=== PATIENT | female | born 1955 | race Caucasian/White ===

== ENCOUNTER 2016-06-18 09:45 | Outpatient (CLI) | payer MEDICAID | END 2016-06-18 09:46 | disposition home or self-care (01) | DX: E03.9 Hypothyroidism, unspecified (principal); Z13.6 Encounter for screening for cardiovascular disorders ==

== ENCOUNTER 2016-07-10 09:00 | Outpatient (CLI) | payer MEDICAID | END 2016-07-10 09:01 | disposition home or self-care (01) | DX: Z12.11 Encounter for screening for malignant neoplasm of colon (principal) ==

== ENCOUNTER 2016-07-24 14:52 | Outpatient (CLI) | payer MEDICAID | END 2016-07-24 14:53 | disposition home or self-care (01) | DX: Z12.31 Encounter for screening mammogram for malignant neoplasm of breast (principal) ==

== ENCOUNTER 2017-12-03 15:30 | Outpatient (CLI) | payer MEDICAID | END 2017-12-03 15:31 | disposition home or self-care (01) | LOC: LAB.F 15:30 | PROVIDERS: ATTEND Family Medicine | DX: E03.9 Hypothyroidism, unspecified (principal) | CPT/HCPCS: 36415; 84443 ==

== ENCOUNTER 2018-12-24 | Outpatient (CLI) | payer MEDICAID | END 2018-12-24 08:17 | disposition home or self-care (01) ==

== ENCOUNTER 2019-02-15 15:33 | Outpatient (CLI) | payer MEDICAID | END 2019-02-15 15:34 | disposition home or self-care (01) | LOC: LAB.S 15:33 | PROVIDERS: ATTEND Registered Nurse | DX: E03.9 Hypothyroidism, unspecified (principal) | CPT/HCPCS: 36415; 84443 ==

== ENCOUNTER 2020-06-29 10:02 | Outpatient (CLI) | payer MEDICARE ==
[2020-06-29 15:53] LABS: BASOPHILS # (AUTO) 0.1 10^3/uL (0.0-0.1); BASOPHILS % (AUTO) 0.7 %; EOSINOPHILS # (AUTO) 0.3 10^3/uL (0.0-0.7); EOSINOPHILS % (AUTO) 3.5 %; LYMPHOCYTES # (AUTO) 2.4 10^3/uL (1.5-3.5); LYMPHOCYTES % (AUTO) 27.8 %; MEAN CORPUSCULAR HEMOGLOBIN 32.3 pg (27.0-31.0); MEAN CORPUSCULAR HGB CONC 33.8 g/dL (32.0-36.0); MEAN CORPUSCULAR VOLUME 95.5 fL (81.0-99.0); MEAN PLATELET VOLUME 10.3 fL (7.9-10.8); MONOCYTES # (AUTO) 0.5 10^3/uL (0.0-1.0); NEUTROPHILS # (AUTO) 5.3 10^3/uL (1.5-6.6); NEUTROPHILS % (AUTO) 61.7 %; PLT - PLATELET COUNT 232 10^3/uL (130-450); RED BLOOD COUNT 4.65 10^6/uL (4.20-5.40); RED CELL DISTRIBUTION WIDTH 13.1 % (12.0-15.0); WHITE BLOOD COUNT 8.6 x10^3/uL (4.8-10.8)
[2020-06-29 16:20] LABS: ALBUMIN 4.2 g/dL (3.2-5.5); ALBUMIN/GLOBULIN RATIO 1.5 (1.0-2.2); ALKALINE PHOSPHATASE 54 IU/L (42-121); ALT ALANINE AMINOTRANSFERASE 83 IU/L (10-60); AST ASPARTATE AMINOTRANSFERASE 46 IU/L (10-42); BILIRUBIN,TOTAL 0.9 mg/dL (0.2-1.0); BUN - BLOOD UREA NITROGEN 23 mg/dL (6-20); CALCIUM 9.3 mg/dL (8.5-10.3); CARBON DIOXIDE - CO2 25 mmol/L (21-32); CHLORIDE 102 mmol/L (101-111); CHOLESTEROL 214 mg/dL; CREATININE 0.8 mg/dL (0.4-1.0); GLUCOSE 101 mg/dL (70-100); HDL CHOLESTEROL 53 mg/dL; LDL CHOLESTEROL,CALCULATED 122 mg/dL; LDL/HDL RATIO 2.3 (<4.4); VLDL CHOLESTEROL 39 mg/dL
== END 2020-06-29 10:03 | disposition home or self-care (01) ==
LOC: LAB.S 10:02
PROVIDERS: ATTEND Registered Nurse
DX: E78.1 Pure hyperglyceridemia (principal); E03.9 Hypothyroidism, unspecified
CPT/HCPCS: 36415; 80053; 80061; 83721; 84443; 85025

== ENCOUNTER 2021-08-07 14:10 | Outpatient (CLI) | payer MEDICARE ==
--- NOTE | 2021-08-08 10:40 | Mammography Report ---
BILATERAL DIGITAL SCREENING MAMMOGRAM 3D/2D: 08/07/2021 CLINICAL: Routine screening. Comparison is made to exams dated: 07/24/2016 mammogram and 05/10/2014 mammogram - [facility]. There are scattered fibroglandular elements in both breasts. No significant masses, calcifications, or other findings are seen in either breast. There has been no significant interval change. IMPRESSION: NEGATIVE There is no mammographic evidence of malignancy. A 1 year screening mammogram is recommended. This exam was interpreted at Station ID: [id number]. NOTE: For mammograms, a report in lay terms will be sent to the patient. Approximately 15% of breast malignancies will not be visualized mammographically. In the management of a palpable breast mass, a negative mammogram must not discourage biopsy of a clinically suspicious lesion. Electronically Signed By: Nkechi lopez/penrad:08/07/2021 17:34:54 ACR BI-RADS Category 1: Negative 3341F PARENCHYMAL PATTERN: (A) - The breast(s) demonstrate(s) scattered fibroglandular densities. BI-RADS CATEGORY: (1) - 1 RECOMMENDATION: (ANNUAL) - Recommend routine annual screening mammography. [id number] 1 year screening LATERALITY: (B)
== END 2021-08-07 14:11 | disposition home or self-care (01) ==
LOC: DI.S 14:10
PROVIDERS: ATTEND Registered Nurse
DX: Z12.31 Encounter for screening mammogram for malignant neoplasm of breast (principal)

== ENCOUNTER 2022-06-06 09:19 | Outpatient (CLI) | payer MEDICARE ==
[2022-06-06 15:38] LABS: BASOPHILS # (AUTO) 0.1 10^3/uL (0.0-0.1); BASOPHILS % (AUTO) 0.6 %; EOSINOPHILS # (AUTO) 0.3 10^3/uL (0.0-0.7); EOSINOPHILS % (AUTO) 3.5 %; HCT - HEMATOCRIT 43.3 % (37.0-47.0); HGB - HEMOGLOBIN 14.4 g/dL (12.0-16.0); LYMPHOCYTES # (AUTO) 1.9 10^3/uL (1.5-3.5); LYMPHOCYTES % (AUTO) 23.5 %; MEAN CORPUSCULAR HEMOGLOBIN 31.6 pg (27.0-31.0); MEAN CORPUSCULAR HGB CONC 33.3 g/dL (32.0-36.0); MEAN CORPUSCULAR VOLUME 95.2 fL (81.0-99.0); MEAN PLATELET VOLUME 9.8 fL (7.9-10.8); MONOCYTES # (AUTO) 0.4 10^3/uL (0.0-1.0); MONOCYTES % (AUTO) 4.9 %; NEUTROPHILS # (AUTO) 5.3 10^3/uL (1.5-6.6); NEUTROPHILS % (AUTO) 67.1 %; PLT - PLATELET COUNT 214 10^3/uL (130-450); RED BLOOD COUNT 4.55 10^6/uL (4.20-5.40); RED CELL DISTRIBUTION WIDTH 13.3 % (12.0-15.0); WHITE BLOOD COUNT 7.9 x10^3/uL (4.8-10.8)
[2022-06-06 16:02] LABS: THYROID STIMULATING HORMONE 4.11 uIU/mL (0.34-5.60)
[2022-06-06 16:10] LABS: ALBUMIN 4.2 g/dL (3.2-5.5); ALBUMIN/GLOBULIN RATIO 1.4 (1.0-2.2); ALKALINE PHOSPHATASE 50 IU/L (42-121); ALT ALANINE AMINOTRANSFERASE 36 IU/L (10-60); AST ASPARTATE AMINOTRANSFERASE 27 IU/L (10-42); BILIRUBIN,TOTAL 0.9 mg/dL (0.2-1.0); BUN - BLOOD UREA NITROGEN 29 mg/dL (6-20); CALCIUM 9.2 mg/dL (8.5-10.3); CARBON DIOXIDE - CO2 26 mmol/L (21-32); CHLORIDE 104 mmol/L (101-111); CHOL/HDL RATIO 4.1 (<4.4); CHOLESTEROL 211 mg/dL; CREATININE 0.9 mg/dL (0.4-1.0); GFR - MDRD 62 (>89); GLUCOSE 106 mg/dL (70-100); HDL CHOLESTEROL 51 mg/dL; LDL CHOLESTEROL,CALCULATED 116 mg/dL; LDL/HDL RATIO 2.3 (<4.4); SODIUM 139 mmol/L (135-145); TOTAL PROTEIN 7.3 g/dL (6.7-8.2); TRIGLYCERIDES 221 mg/dL; VLDL CHOLESTEROL 44 mg/dL
== END 2022-06-06 09:20 | disposition home or self-care (01) ==
LOC: LAB.S 09:19
PROVIDERS: ATTEND Registered Nurse
DX: E03.9 Hypothyroidism, unspecified (principal); E78.1 Pure hyperglyceridemia; Z79.899 Other long term (current) drug therapy
CPT/HCPCS: 36415; 80053; 80061; 83721; 84443; 85025

== ENCOUNTER 2022-08-08 10:45 | Outpatient (CLI) | payer MEDICARE ==
[2022-08-08 11:27] VITALS: BP 112/76
--- NOTE | 2022-08-08 11:27 | SLEEP CARE CONSULTATION ---
Information from patient questionnaire entered by Luis Kamara. I have reviewed and concur with the information entered by Luis Kamara. This document represents the service I personally performed and the decisions made by me, Lida Foster ARNP. History of Present Illness Service Date and Time: 08/08/2022 1045 Reason for Visit: New patient Chief Complaint: reports: Unrefreshed sleep, Snoring, Excessive daytime sleepiness, Observed pauses in breathing Date of Onset: 3YRS Usual bedtime: 11PM-MIDNIGHT Time it takes to fall asleep: 15-20 Snores at night: Yes Observed to quit breathing while asleep: Yes Sleeps alone due to snoring: No Number of times waking at night: 0-1 Reasons for waking at night: reports: Choking, Snoring, Gasping for air, Bathroom, Other (UNKNOWN) Toss, Turn, or Twitch while sleeping: Yes (not much usually) Recalls having dreams: Yes Usually gets out of bed at: 630-7AM Feels refreshed in the morning: Yes Morning headache: Yes (not regularly; every 1-2 months; hx migraines; RESOLVES AFTER COFFEE) Sleepy or fatigued during the day: Yes Ever fallen asleep while driving: No Takes day naps: Yes (3-4 times a week) Dreams during day naps: Yes Prior sleep studies: No Additional HPI information: I had the pleasure of seeing SISI VASQUEZ today regarding the possibility of her having a sleep disorder. Her current complaints are unrefreshed sleep, excessive daytime sleepiness, snoring and observed pauses in breathing. She states she is getting into a "napping habit". She states it started after the pandemic started. She states she takes naps about 4 times a week for about 30-60 minutes. She states she does not feel refreshed immediately but will in about an hour. She will have difficulty falling asleep that night. She normally is able to sleep without wake-ups. She thinks she is relatively rested in the mornings after a night's sleep. 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 Patient is Single and lives in [place]. Have you smoked in the past 12 months: No Years of smokin Quit date: 1978 Alcohol use: Yes Alcohol amount and frequency: 2GLASSES WINE 2X WEEK Caffeine use: Yes Caffeine amount and frequency: COFFEE IN AM SOMETIMES TEA MID AFTER NOON Family History Family history of sleep disordered breathing: Yes Family Hx Sleep Apnea: Father: Snoring Allergies and Home Medications Known drug allergies: No Drug allergies reviewed: Yes Home medication list reviewed: Yes Allergy and home medication list: Medications: Levothyroxine 37 mcg daily Review of Systems Weight gain over past 5 years: 10-20 Cardiovascular: denies: high blood pressure Respiratory: denies: shortness of breath Gastrointestinal: reports: heartburn Urinary: reports: frequency Neurological: reports: headaches Psychiatric: denies: anxiety, depression Ear/Nose/Throat: reports: nasal congestion, tonsillectomy. denies: wisdom teeth removed (one is gone) Endocrine: reports: thyroid disease Musculoskeletal: reports: joint pain Immunologic: reports: sneezing Physical Exam Vital signs obtained and entered by: LUIS Acevedo MA Blood Pressure: 112/76 (LEFT ARM) Cuff size: regular Heart Rate: 68 O2 Saturation: 97 Height: 5 ft 3 in Weight: 239 lb 6.4 oz Body Mass Index: 42.4 BMI Classification: Morbidly Obese Neck circumference: 17.5 Mouth and throat: narrow oropharynx Soft palate: long Hard palate: normal Uvula: normal Uvula visualization: 0% Mallampati Class IV Tongue: enlarged in size with teeth simpson on lateral edges Tonsils: absent bilaterally Neck: normal w/o lymphadenopathy or thyromegaly Heart: regular rate and rhythm Lungs: clear bilaterally Impression and Plan 1. Suspected Obstructive Sleep Apnea-Hypopnea Syndrome, as suggested by a history of loud and irregular snoring, gasping or choking in sleep, morning headache, unrefreshed sleep, and excessive daytime sleepiness. Narrow oropharynx and obesity are common predisposing factors for obstructive sleep apnea-hypopnea syndrome. I recommend proceeding to polysomnography to confirm the diagnosis and to assess severity. If the patient has significant sleep disordered breathing, a manual CPAP titration study will also be performed to find the optimal treatment pressure. I informed the patient of what the sleep studies involve and after some discussion, obtained agreement to proceed. The pathophysiology of obstructive sleep apnea-hypopnea syndrome was discussed with the patient and health risks of cardiovascular and cerebrovascular disease if not treated. Risks of drowsy driving discussed in detail and patient advised to avoid long distance driving and to pan puller at the first sign of drowsiness. Patient agreed to plan. * Schedule polysomnography * Avoid long distance driving or driving when feeling sleepy. * Avoid alcohol, sedative and muscle relaxant around bedtime. * Attempt to lose weight. * Review instructions provided by trained office staff on how to prepare for the sleep study. * Return for follow-up after sleep study completed. Counseling Topics: Weight loss health impact Visit Type: In Office Time Spent with Patient (minutes): 31 Provider Statement: I spent 100% of the Face to Face Visit with the patient with greater than 50% spent counseling the patient and coordination of care.
== END 2022-08-08 10:46 | disposition home or self-care (01) ==
LOC: SC 10:45
PROVIDERS: ATTEND Nurse Practitioner Family
DX: G47.10 Hypersomnia, unspecified (principal); R51.9 Headache, unspecified; R06.83 Snoring; G47.8 Other sleep disorders; E66.01 Morbid (severe) obesity due to excess calories; Z68.41 Body mass index [BMI] 40.0-44.9, adult; Z87.891 Personal history of nicotine dependence
CPT/HCPCS: 99203; G0463; 99212

== ENCOUNTER 2022-08-12 09:45 | Outpatient (CLI) | payer MEDICARE ==
--- NOTE | 2022-08-13 09:27 | Mammography Report ---
BILATERAL DIGITAL SCREENING MAMMOGRAM 3D/2D: 08/12/2022 CLINICAL: Routine screening. Comparison is made to exams dated: 08/07/2021 mammogram, 07/24/2016 mammogram, and 05/10/2014 mammogram - [facility]. There are scattered areas of fibroglandular density in both breasts (category b / 25%-50% glandular t issue). No significant masses, calcifications, or other findings are seen in either breast. There has been no significant interval change. IMPRESSION: NEGATIVE There is no mammographic evidence of malignancy. A 1 year screening mammogram is recommended. Based on the Tyrer Cuzick model (a risk assessment model) the patients lifetime risk is 6.7% and her 10 year risk is 3.7%. According to the ACR, ACS, and NCCN guidelines, an annual breast MRI exam brielle g with mammogram is recommended if the patients lifetime risk is 20% or greater. This exam was interpreted at Station ID: [id number]. NOTE: For mammograms, a report in lay terms will be sent to the patient. Approximately 15% of breast malignancies will not be visualized mammographically. In the management of a palpable breast mass, a negative mammogram must not discourage biopsy of a clinically suspicious lesion. Electronically Signed By: Nkechi lopez/tyrel:08/12/2022 13:06:58 letter sent: No_Letter ACR BI-RADS Category 1: Negative 3341F PARENCHYMAL PATTERN: (A) - The breast(s) demonstrate(s) scattered fibroglandular densities. BI-RADS CATEGORY: (1) - 1 Mammogram [id number] 1 year screening LATERALITY: (B)
== END 2022-08-12 09:46 | disposition home or self-care (01) ==
LOC: DI.S 09:45
PROVIDERS: ATTEND Registered Nurse
DX: Z12.31 Encounter for screening mammogram for malignant neoplasm of breast (principal)

== ENCOUNTER 2022-09-25 14:27 | Outpatient (CLI) | payer MEDICARE | END 2022-09-25 14:28 | disposition home or self-care (01) | LOC: SC 14:27 | PROVIDERS: ATTEND Nurse Practitioner Family | DX: G47.33 Obstructive sleep apnea (adult) (pediatric) (principal); R09.02 Hypoxemia | CPT/HCPCS: G0399 ×2; 95806 ==

== ENCOUNTER 2023-01-20 09:48 | Outpatient (CLI) | payer MEDICARE ==
--- NOTE | 2023-01-20 09:38 | SLEEP CARE CONSULTATION ---
Information from patient questionnaire entered by Luis Kamara. I have reviewed and concur with the information entered by Luis Kamara. This document represents the service I personally performed and the decisions made by , Lida Foster ARNP. History of Present Illness Service Date and Time: 01/20/2023 09 Previous diagnosis: Mild, Obstructive Sleep Apnea-Hypopnea Syndrome AHI: 12.2 (-2022) Reason for follow up: three month (F/U ON ORAL DEVICE) Equipment type: Dental Appliance Prior sleep studies: No Type of Sleep Study: Home sleep study (COMPLETED 09/25/22) HPI additional information: SISI VASQUEZ was diagnosed to have mild, AHI 12.2, obstructive sleep apnea- hypopnea syndrome and returns via video telehealth visit today for Oral appliance therapy three month follow-up. Sleep Study - Results Type of Sleep Study: Home sleep study (COMPLETED 09/25/22) Prior sleep studies: No CPAP Compliance Data Compliance data discussion: She states it has been an adjustment. She was only able to wear for 2-4 hours but now she is able to wear 5-6 hours. She has had some jaw soreness but this is improving and is gone quickly in the morning. It is "pretty comfortable" and she is using it every night. Subjective On therapy, patient: reports: sleeping better, awakening more refreshed, being more awake and alert during the day, more rested overall, other (still occasionally taking naps but not as often; more awake during the day). denies: drowsiness while driving Initial [place] Sleepiness Scale score: 8 (07/09/22) Current [place] Sleepiness Scale score: 6 (01/20/23) Allergies and Home Medications Known drug allergies: No Drug allergies reviewed: Yes Home medication list reviewed: Yes (no changes) Allergy and home medication list: Allergies No Known Drug Allergies Allergy (Verified 01/19/23 09:28) Review of Systems Review of systems same as previous: Yes (no changes) Physical Exam Vital signs obtained and entered by: LUIS Acevedo MA Height: 5 ft 3 in (PER PT) Weight: 238 lb (PER PT) Body Mass Index: 42.1 BMI Classification: Morbidly Obese Impression and Plan 1. Obstructive Sleep Apnea-Hypopnea Syndrome, mild. Using oral appliance therapy, the patient has better sleep quality and is more rested overall. Patient returns with oral appliance. She has gotten comfortable with her appliance and is feeling the improvement. She knows she needs more sleep sometimes but this is not due to the oral appliance. She appears to be having good improvement of her symptoms overall and we will order a follow-up sleep study to verify treatment efficacy with oral appliance in place. Patient's apnea severity and rationale for treatment to reduce apnea, improve sleep quality and reduce cardiovascular and cerebrovascular events was reviewed. 2. Obesity unspecified. Currently patients BMI is 42.1. Obesity increases the risk of apnea, CPAP pressure requirements and overall health risks especially cardiovascular and diabetes. Thus patient is advised to lose weight. -Continue oral appliance therapy -PSG/HST with oral appliance to verify treatment efficacy -Attempt to lose weight -Call this office if any problems -Return for follow up after sleep study, or sooner if concerns arise Counseling Topics: Weight loss health impact Visit Type: Telehealth Video Video Type: Doximity Patient Location: Home Location of Provider: Office Patient agrees and consents to this telehealth visit type: Yes Patient agrees to have their insurance billed: Yes Time Spent with Patient (minutes): 19 Provider Statement: I spent 100% of the Telehealth Video Call with the patient with greater than 50% spent counseling the patient and coordination of care.
== END 2023-01-20 09:49 | disposition home or self-care (01) ==
LOC: SC 09:48
PROVIDERS: ATTEND Nurse Practitioner Family
DX: G47.33 Obstructive sleep apnea (adult) (pediatric) (principal); E66.9 Obesity, unspecified; Z68.41 Body mass index [BMI] 40.0-44.9, adult

== ENCOUNTER 2023-02-25 13:42 | Outpatient (CLI) | payer MEDICARE ==
--- NOTE | 2023-02-25 13:39 | SLEEP CARE CONSULTATION ---
Information from patient questionnaire entered by Rebeca Kamara. I have reviewed and concur with the information entered by Rebeca Kamara. This document represents the service I personally performed and the decisions made by , Lida Foster ARNP. History of Present Illness Service Date and Time: 02/25/2023 1320 Initial [place] Sleepiness Scale score: 8 (07/09/22) Current [place] Sleepiness Scale score: 12 (02/25/23) Additional HPI information: SISI VASQUEZ returns via video telehealth visit for follow up and results of the recently performed home sleep study. Her sleep study showed mild obstructive sleep apnea with an average AHI of 16 and sandra oxygen saturation of 79%. I explained the pathophysiology behind obstructive sleep apnea. We then spent quite a bit of time discussing different treatment options. For mild obstruc tive sleep apnea, surgery and oral appliance are alternatives to nasal CPAP therapy but in moderate or severe cases, nasal CPAP is the most effective and reliable treatment. I reviewed the impact of weight changes on sleep apnea and strongly recommended losing weight. Patient counseled not drink alcohol less than 4 hours before bedtime as it can increase snoring and apnea. Patient was cautioned about risks of drowsy driving until sleepiness symptoms resolve. Patient denies drowsy driving. Sleep Study - Results Type of Sleep Study: Home sleep study (COMPLETED 02/16/23) Prior sleep studies: No Polysomnography/Home Sleep Study results: Physician Impression: The quality of the study is good. The length of the study is adequate (> 240 minutes). Please also see the tabulated and graphic data. 1. Obstructive Sleep Apnea-Hypopnea (ICD-10 G47.33), moderate, with an AHI of 16.0/hr and sandra SaO2 of 79%. During the study, the patient had 65 apneas (65 obstructive, 0 central, 0 mixed) and 48 hypopneas. The longest episode lasted 93.0 seconds. The respiratory events occurred more frequently during supine sleep (supine AHI was 18.1 and non-supine, 10.94). 2. Hypoxemia (ICD-10 R09.02), moderate, with the lowest oxygen saturation of 79 % and 22.7 minutes with SaO2 under 90%. Baseline oxygen saturation was normal (Average oxygen saturation was 93%). Allergies and Home Medications Known drug allergies: No Drug allergies reviewed: Yes Home medication list reviewed: Yes (no changes) Allergy and home medication list: Allergies No Known Drug Allergies Allergy (Verified 01/19/23 09:28) Review of Systems Review of systems same as previous: Yes (NO CHANGE) Physical Exam Vital signs obtained and entered by: REBECA Acevedo MA Height: 5 ft 3 in (PER PT) Weight: 220 lb (PER PT) Body Mass Index: 38.9 BMI Classification: Obese Impression and Plan 1. Obstructive Sleep Apnea-Hypopnea Syndrome, mild, with lowest oxygen saturation of 79%. Her sleep study was done with an oral appliance in place. She states she did not sleep well that night because the strap was twisted but she was eventually able to go to sleep. Her oral appliance is ineffective in controlling her sleep apnea. I instructed Sisi to contact her dentist because she is going to need to get it adjusted. Once this is completed she will need to followup with us again and I will order another followup sleep study to check effectiveness. 2. Hypoxemia, moderate, with the lowest oxygen saturation of 79% and 22.7 minutes with SaO2 under 90%. Her baseline oxygen saturation was normal with an average oxygen saturation of 93%. 3. Obesity, unspecified. Currently patients BMI is 38.9. Obesity increases the risk of apnea, CPAP pressure requirements and overall health risks especially cardiovascular and diabetes. Thus patient is advised to lose weight. * Continue oral appliance * Return to dentist to have oral appliance adjusted. * Attempt to lose weight. * Avoid alcohol consumption near bedtime. * Return one month after using oral appliance is adjusted. I will assess response to therapy at that time. Counseling Topics: Weight loss health impact Visit Type: Telehealth Video Video Type: Milad Patient Location: Home Location of Provider: Office Patient agrees and consents to this telehealth visit type: Yes Patient agrees to have their insurance billed: Yes Time Spent with Patient (minutes): 20 Provider Statement: I spent 100% of the Telehealth Video Call with the patient with greater than 50% spent counseling the patient and coordination of care.
== END 2023-02-25 13:43 | disposition home or self-care (01) ==
LOC: SC 13:42
PROVIDERS: ATTEND Nurse Practitioner Family
DX: G47.33 Obstructive sleep apnea (adult) (pediatric) (principal); R09.02 Hypoxemia; E66.9 Obesity, unspecified; Z68.38 Body mass index [BMI] 38.0-38.9, adult

== ENCOUNTER 2023-07-01 09:23 | Outpatient (CLI) | payer MEDICARE ==
[2023-07-01 14:34] LABS: BASOPHILS # (AUTO) 0.1 10^3/uL (0.0-0.1); BASOPHILS % (AUTO) 0.8 %; EOSINOPHILS # (AUTO) 0.3 10^3/uL (0.0-0.7); EOSINOPHILS % (AUTO) 3.7 %; HCT - HEMATOCRIT 42.6 % (37.0-47.0); HGB - HEMOGLOBIN 14.3 g/dL (12.0-16.0); LYMPHOCYTES # (AUTO) 2.5 10^3/uL (1.5-3.5); LYMPHOCYTES % (AUTO) 27.4 %; MEAN CORPUSCULAR HEMOGLOBIN 32.6 pg (27.0-31.0); MEAN CORPUSCULAR HGB CONC 33.6 g/dL (32.0-36.0); MEAN PLATELET VOLUME 10.3 fL (7.9-10.8); MONOCYTES # (AUTO) 0.5 10^3/uL (0.0-1.0); NEUTROPHILS # (AUTO) 5.5 10^3/uL (1.5-6.6); NEUTROPHILS % (AUTO) 61.8 %; PLT - PLATELET COUNT 225 10^3/uL (130-450); RED BLOOD COUNT 4.39 10^6/uL (4.20-5.40); RED CELL DISTRIBUTION WIDTH 13.4 % (12.0-15.0); WHITE BLOOD COUNT 8.9 x10^3/uL (4.8-10.8)
[2023-07-01 15:40] LABS: ALBUMIN 4.2 g/dL (3.2-5.5); ALBUMIN/GLOBULIN RATIO 1.4 (1.0-2.2); ALKALINE PHOSPHATASE 56 IU/L (42-121); ALT ALANINE AMINOTRANSFERASE 51 IU/L (10-60); AST ASPARTATE AMINOTRANSFERASE 34 IU/L (10-42); BILIRUBIN,TOTAL 0.7 mg/dL (0.2-1.0); BUN - BLOOD UREA NITROGEN 25 mg/dL (6-20); CALCIUM 9.9 mg/dL (8.5-10.3); CARBON DIOXIDE - CO2 30 mmol/L (21-32); CHLORIDE 102 mmol/L (101-111); CHOL/HDL RATIO 3.8 (<4.4); CHOLESTEROL 199 mg/dL; CREATININE 0.9 mg/dL (0.6-1.3); GFR - MDRD 62 (>89); GLUCOSE 103 mg/dL (74-104); HDL CHOLESTEROL 52 mg/dL; LDL CHOLESTEROL,CALCULATED 102 mg/dL; POTASSIUM 4.1 mmol/L (3.5-4.5); SODIUM 137 mmol/L (135-145); TOTAL PROTEIN 7.2 g/dL (6.4-8.9); TRIGLYCERIDES 223 mg/dL (48-352); VLDL CHOLESTEROL 45 mg/dL
[2023-07-01 15:54] LABS: THYROID STIMULATING HORMONE 5.49 uIU/mL (0.34-5.60)
== END 2023-07-01 09:24 | disposition home or self-care (01) ==
LOC: LAB.S 09:23
PROVIDERS: ATTEND Registered Nurse
DX: E78.9 Disorder of lipoprotein metabolism, unspecified (principal); E03.9 Hypothyroidism, unspecified; Z79.899 Other long term (current) drug therapy
CPT/HCPCS: 36415; 80053; 80061; 83721; 84443; 85025

== ENCOUNTER 2023-08-03 11:41 | Outpatient (CLI) | payer MEDICARE ==
--- NOTE | 2023-08-03 15:54 | XRAY Report ---
PROCEDURE: Knee 1-2V BL INDICATIONS: KNEE PAIN TECHNIQUE: 2 views of the knee(s) were acquired. COMPARISON: None. FINDINGS: Bones: No fractures or dislocations. No suspicious bony lesions. There is moderate bilateral medi al and patellofemoral compartment narrowing. There is mild to moderate bilateral lateral compartment narrowing. Minimal paratracheal or osteophytes. No erosions. Soft tissues: No knee joint effusion. No suspicious soft tissue calcifications or masses. IMPRESSION: Tricompartmental arthritic changes bilaterally most severe medially. Reviewed by: Ana Angeles MD on 08/03/2023 3:53 PM PDT Approved by: Ana Angeles MD on 08/03/2023 3:53 PM PDT Station ID: [id number]
== END 2023-08-03 11:42 | disposition home or self-care (01) ==
LOC: DI.S 11:41
PROVIDERS: ATTEND Registered Nurse
DX: M17.0 Bilateral primary osteoarthritis of knee (principal)